=== PATIENT | female | born 1955 | race Caucasian/White ===

== ENCOUNTER 2016-09-29 09:36 | Day surgery (SDC) | payer BC ==
[~2016-09-29] VITALS: Ht 165.1 cm; Wt 81.8 kg
[~2016-09-29 09:36] MED LIST: ALDACTONE50 MG PO; CARAFATE1 G PO; COZAAR100 MG PO; FISH OIL 1,0001 CA1 PO; FUROSEMIDE40 MG PO; GEMFIBROZIL600 MG PO; HUMALOG 30100 UNITS/ SC; LANTUS INSULIN10 ML SC; LEXAPRO20 MG PO; NORMODYNE / TR200 MG PO; NORVASC5 MG PO; OMEPRAZOLE40 MG PO; PEPCID40 MG PO; PHAZYME 125 MG125 MG PO; PROTONIX40 MG PO; ULORIC40 MG PO; VITAMIN B-1000 MCG/M IM
[2016-09-29 10:18] LABS: HEMATOCRIT 37.8 % (36.0-48.0); HEMOGLOBIN 12.4 g/dL (12-16); MCH 31.4 pg (26.0-34.0); MCHC 32.8 g/dL (31.0-37.0); MCV 95.7 fL (80.0-100.0); MEAN PLATELET VOLUME 9.7 fL (7.4-10.4); RBC 3.95 10x6/uL (4.00-5.40); RDW 14.3 % (11.5-14.5); WBC 7.4 10x3/uL (4.8-10.8)
[2016-09-29 10:26] LABS: ANION GAP 13.9 mmol/L (8-16); CALCIUM 9.7 mg/dL (8.5-10.1); CARBON DIOXIDE 28.8 mmol/L (21.0-32.0); CREATININE - SERUM 0.9 mg/dL (0.6-1.3); POTASSIUM - SERUM 3.7 mmol/L (3.5-5.1)
[2016-09-29 10:35] VITALS: BP 134/62; Ht 165.1 cm; Wt 81.8 kg
[2016-09-29] MEDS ORDERED: CLARITIN 10 MG10 MG PO (10:39)
[2016-09-29] MEDS ORDERED: BUSPAR10 MG PO (10:41)
[2016-09-29] MEDS ORDERED: CATAPRES0.2 MG PO (10:42)
[2016-09-29] MEDS ORDERED: NORMODYNE / TR300 MG PO (10:43)
[2016-09-29] MEDS ORDERED: CARDURA2 MG PO (10:44)
[2016-09-29] MEDS ORDERED: PHAZYME 125 MG125 MG PO (10:45)
[2016-09-29] MEDS ORDERED: VITAMIN D31000 UNIT PO (10:45)
[2016-09-29] MEDS ORDERED: PREDNISONE20 MG PO (10:46)
[2016-09-29] MEDS ORDERED: HUMULIN R U SQ (10:51)
--- NOTE | 2016-09-29 13:31 | NUR ---
1250-RECD FROM GI LAB. RESP WITH EASE. VOFREDDY HERE TO REPORT. 1300-FULL LIQUIDS SERVED. 1320-IV D/C. VOIDS AND DRESSED. D/C INSTRUCTIOMS REVIEWED. 1330-D/C HOME
--- NOTE | 2016-10-01 19:33 | OP ---
PATIENT NAME: SHALONDA KRISHNA MEDICAL RECORD: [id number] :51 [facility] AD[facility] DATE: SURGEON: JESSICA LERMA DO DATE OF OPERATION: 09/29/2016 PROCEDURE: EGD with biopsies. 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 SCOPE: Olympus video gastroscope. MEDICATIONS: Propofol 290 mg IV per anesthesia. ESTIMATED BLOOD LOSS: Minimal. COMPLICATIONS: None. FINDINGS: Informed consent was given. The patient was made comfortable with the above medication. After reaching an adequate level of sedation by slow IV push, the patient was placed on her left side. The endoscope was then advanced under direct visualization through the mouth to the second portion of the duodenum. The upper, middle, and distal thirds of the esophagus appeared normal. At the GE junction, there was evidence of short-segment Riley esophagus, which involved approximately 80% of the circumference of the esophagus at the GE junction. Biopsies were taken from this area to look for dysplasia. There were no abnormal-appearing sites to suggest dysplasia. The endoscope was advanced beyond the GE junction into the stomach and retroflexed to view the cardia where a small sliding hiatal hernia was present. The fundus and body of the stomach appeared normal. In the distal body, antrum and prepyloric region, there was erythema and granularity as well as some nodularity consistent with gastritis. Random biopsies were taken to submit for histology and to rule out H. pylori. The endoscope was advanced through the pylorus into the duodenum where the bulb and second portion of the duodenum appeared normal. The endoscope was then withdrawn from the patient. The patient tolerated the procedure well and there were no complications. IMPRESSION: 1. 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 2. Small sliding hiatal hernia. 3. Erythema and granularity as well as nodularity of the stomach consistent with gastritis, biopsies pending. 4. There was no evidence of arteriovenous malformations, gastric ulcers or another etiology to explain the iron deficiency anemia. PLAN AND RECOMMENDATIONS: 1. Discharge home when recovery parameters are met. 2. Continue current diet, which is a GERD diet with reflux precautions. 3. Continue current medications. 4. Consider colonoscopy if this has not been performed recently regarding the iron deficiency anemia. 5. Follow up in GI clinic as needed. 6. Anticipate a 2-year recall EGD regarding the history of Riley's without OPERATIVE REPORT [id number] SHALONDA KRISHNA dysplasia. TRANSINT:[id number] Voice Confirmation ID: [id number] DOCUMENT ID: [id number] JESSICA LERMA DO at 1935 CC: [id number] DICTATION DATE: 09/29/16 1250 [employer] SUPERVISOR: 09/29/162030 [facility] 09/29/16 [id number] [place] [address]
== END 2016-09-29 13:30 | disposition home or self-care (01) ==
LOC: D.OPS 09:36
PROVIDERS: Anesthesiology
DX: K22.70 Barrett's esophagus without dysplasia (principal); F17.200 Nicotine dependence, unspecified, uncomplicated; I10 Essential (primary) hypertension; E11.9 Type 2 diabetes mellitus without complications; K21.9 Gastro-esophageal reflux disease without esophagitis; D50.9 Iron deficiency anemia, unspecified; R19.5 Other fecal abnormalities; Z01.812 Encounter for preprocedural laboratory examination